=== PATIENT | female | born 1960 ===

== ENCOUNTER 2020-09-09 06:41 | Outpatient (CLI) | payer BC, SELFPAY ==
[2020-09-11 11:58] LABS: SARS-CoV-2 RNA PCR Negative
== END 2020-09-09 06:42 | disposition home or self-care (01) ==
PROVIDERS: Visit Provider Family Medicine
DX: Z20.828 Contact with and (suspected) exposure to other viral communicable diseases (principal); Z01.818 Encounter for other preprocedural examination
CPT/HCPCS: 87635; C9803; U0003

== ENCOUNTER 2020-09-23 06:54 | Outpatient (CLI) | payer BC, SELFPAY ==
[2020-09-25 18:35] LABS: SARS-CoV-2 RNA PCR Positive
== END 2020-09-23 06:55 | disposition home or self-care (01) ==
LOC: CHSLAB 06:56
PROVIDERS: Visit Provider Family Medicine
DX: U07.1 COVID-19 (principal)
CPT/HCPCS: 87635; C9803; U0003